=== PATIENT | female | born 1990 | race Caucasian/White ===

== ENCOUNTER 2022-07-27 13:51 | Outpatient (CLI) | payer OTHER, SELFPAY ==
[2022-07-27 17:37] LABS: Glucose* 95 mg/dL (60-115)
== END 2022-07-27 13:52 | disposition home or self-care (01) ==
LOC: NFLDREF 13:53
PROVIDERS: PCP Family Medicine; Visit Provider Obstetrics & Gynecology
DX: Z01.419 Encounter for gynecological examination (general) (routine) without abnormal findings (principal); Z13.1 Encounter for screening for diabetes mellitus; Z13.29 Encounter for screening for other suspected endocrine disorder
CPT/HCPCS: 82947; 84443

== ENCOUNTER 2023-06-21 22:38 | Emergency (ER) | payer OTHER, SELFPAY ==
[2023-06-21 22:53] VITALS: BP 145/93; PULSE 93; RESP 16; TEMP 37.1; O2SAT 97; BMI 29.6
--- NOTE | 2023-06-22 00:07 | ED_ITS ---
HPI - General Adult General Date Seen: 06/21/23 Chief complaint: Eye Problems Stated complaint: swollen eye Time Seen by Provider: 06/21/23 22:55 History of Present Illness HPI narrative: 32-year-old generally healthy female presents to the ER today with her for evaluation of concerns with pain and swelling involving her left eye. Symptoms again this morning with mild irritation and ?grayness, in her left eye. Her left eye sclera was a bit red this morning and her eye was itchy and bothersome throughout the day. It has been draining mostly clear fluid with a small amount of pus at the eyelid margins. This afternoon evening she is also developing some irritation in draining this involving her right eye. However this evening she had increasing symptoms in her left eye and developed worsening pain and swelling of her upper and lower lids. Vision is normal in both eyes. No known sick contacts although she has children who could have brought home viral illnesses. No fever. No headache. She is getting some pain in her left eyelids and around her left eye. With increasing swelling of her lids, she and her did an Internet search. They were concerned about possible evolving orbital cellulitis. No the other generalize headache. No pain with extraocular movements. She normally wears glasses. No known foreign bodies. No contacts. No trauma to her eye. No chemical exposure. At triage her visual acuity was 20/40 in the left (affected eye) and 20/50 on the right. Related Data Previous Rx's Medication Instructions Recorded drospirenone 3 mg-ethinyl 1 tab PO QDAY #84 tabs 09/07/22 estradiol 0.02 mg tablet Allergies Allergy/AdvReac Type Severity Reaction Status Date / Time latex Allergy Intermediate Unknown Verified 12/29/22 08:20 Sulfa (Sulfonamide Allergy Intermediate Hives Verified 12/29/22 08:20 Antibiotics) [facility] Medical History (Updated 06/22/23 @ 00:09 by Tremaine Hobson MD) History of delivery ?Z87.51 - Personal history of pre-term labor (ICD-10) History of migraine ?Z86.69 - Personal history of other diseases of the nervous system and sense organs (ICD-10) Vaginal delivery ?O80 - Encounter for full-term uncomplicated delivery (ICD-10) Proteinuria affecting ?O12.10 - Gestational proteinuria, unspecified trimester (ICD-10) Premenstrual dysphoric disorder ?F32.81 - Premenstrual dysphoric disorder (ICD-10) Surgical History (Updated 07/27/22 @ 13:36 by Lisa Mariano MD) History of hernia repair (~1999) ?Z98.890 - Other specified postprocedural states (ICD-10) ?Z87.19 - Personal history of other diseases of the digestive system (ICD-10) Status post bilateral inguinal hernia repair ?Z98.890 - Other specified postprocedural states (ICD-10) ?Z87.19 - Personal history of other diseases of the digestive system (ICD-10) History of third molar tooth extraction ?K08.409 - Partial loss of teeth, unspecified cause, unspecified class (ICD- 10) History of thoracic surgery ?Z98.890 - Other specified postprocedural states (ICD-10) Family History (Updated 07/27/22 @ 14:26 by Lisa Mariano MD) Father Depression Mother High blood pressure High cholesterol Thyroid disease Heart disease Grandmother Ovarian cancer Seizure disorder Uncle Thyroid disease Brother High blood pressure High cholesterol Other Family history of myotonic dystrophy Social History (Updated 07/27/22 @ 14:27 by Lisa Mariano MD) Narrative: [id number] mom, 2 children Highest level of school completed/degree received: Bachelor's degree Physical activity type details: Cardio, weights, [place], Pilates How many days of moderate to strenuous exercise, like a brisk walk, did you do in the last 7 days: 6 Smoking Status: Never smoker Do you use any of these nicotine containing products: None Second hand tobacco smoke exposure: No How often do you have a drink containing alcohol: never AUDIT-C Alcohol total score: 0 Non-prescribed substance use: denies use Are you now , , , , never or living with a partner: Social isolation score (0-1 are the most socially isolated patients): 1 Little interest or pleasure in doing things: not at all Feeling down, depressed, or hopeless: not at all Do you think of yourself as: straight/heterosexual Gender Identity: female Are you currently sexually active: Yes In the past 12 months, how many sex partners have you had: one Are you using contraception or practicing any form of control: Yes service: No Exam Narrative: Exam Narrative: Constitutional: Appears well-developed and well-nourished. Alert. Conversant. Non toxic. HENT: Head: Atraumatic. Nose: Nose normal. Mouth/Throat: Oral mucosa is clear and moist. no trismus. Pharynx normal. Tonsils symmetric. No tonsillar enlargement, erythema, or exudate. Eyes: Visual acuity (R): 20/50, (L): 20/40 PERRLA, swinging flashlight test normal, EOMI. No exophthalmos or enophthalmos. Normal extraocular movements without pain. She has mild injection of both the right and left bulbar conjunctiva. More erythema on the left than on the right. She has erythema and swelling of her left upper> left lower lids. Small amount of drainage in purulent material at the lid margin. No foreign body under the upper or lower lid. Neck: Normal range of motion. Neck supple. No tracheal deviation present. Cardiovascular: Normal rate, regular rhythm. No gallop. No friction rub. No murmur heard. Pulmonary/Chest: Effort normal. No stridor. No respiratory distress. No wheezes. No rales. No rhonchi . Musculoskeletal: RUE: Normal range of motion. No tenderness. No deformity LUE: Normal range of motion. No tenderness. No deformity RLE: Normal range of motion. No edema. No tenderness. No deformity LLE: Normal range of motion. No edema. No tenderness. No deformity Lymph: No cervical adenopathy. Neurological: Alert and oriented to person, place, and time. Normal strength. CN II-VII intact. No sensory deficit. GCS eye subscore is 4. GCS verbal subscore is 5. GCS motor subscore is 6. Normal coordination Skin: Skin is warm and dry. No rash noted. No pallor. Normal capillary refill. Psychiatric: Normal mood. Normal affect. Const: Vital Signs, click to edit/add: Vital Signs - 24 hr 06/21/23 22:53 Temperature 98.8 F Pulse Rate [Right Pulse Oximeter] 93 Respiratory Rate 16 Blood Pressure [Le ft Upper Arm] 145/93 H Pulse Oximetry 97 Oxygen Delivery Me thod Room Air Course Vital Signs Vital signs: Initial Vital Signs Temperature 98.8 F 06/21/23 22:53 Temperature Source Temporal Artery Scan 06/21/23 22:53 Pulse Rate 93 06/21/23 22:53 Pulse Rhythm Regular 06/21/23 22:53 Respiratory Rate 16 06/21/23 22:53 Blood Pressure 145/93 H 06/21/23 22:53 Blood Pressure Mean 110 H 06/21/23 22:53 Blood Pressure Position Sitting 06/21/23 22:53 Pulse Oximetry 97 06/21/23 22:53 Oxygen Delivery Method Room Air 06/21/23 22:53 Vital Signs Temperature 98.8 F 06/21/23 22:53 Pulse Rate 93 06/21/23 22:53 Respiratory Rate 16 06/21/23 22:53 Blood Pressure 145/93 H 06/21/23 22:53 Pulse Oximetry 97 06/21/23 22:53 Oxygen Delivery Method Room Air 06/21/23 22:53 Temperature 98.8 F 06/21/23 22:53 Pulse Rate 93 06/21/23 22:53 Respiratory Rate 16 06/21/23 22:53 Blood Pressure 145/93 H 06/21/23 22:53 Pulse Oximetry 97 06/21/23 22:53 Oxygen Delivery Method Room Air 06/21/23 22:53 Medications Administered Medications: Discontinued Medications Generic Name Dose Route Start Last Admin Trade Name Freq PRN Reason Stop Dose Admin Gentamicin Sulfate 1 drop 06/22/23 09:00 06/22/23 00:36 Gentamicin 0.3% Ophth EYE-BOTH Not Given TID [facility] Medical Decision Making [facility] Narrative Medical decision making narrative: This patient presents for evaluation of swollen, red, itchy, painful left eye and also mild itching and grayness of her right eye. A broad differential diagnosis was considered including orbital cellulitis, periorbital cellulitis, eye trauma,, local exposure, bacterial conjunctivitis, viral conjunctivitis, foreign body, corneal abrasion, chemical vs allergic conjunctivitis, corneal ulcer, HSV, herpes zoster opthalmicus, endopthalmitis, orbital cellulitis, etc. Signs and symptoms consistent with a possible early preseptal left cellulitis and conjunctivitis, possibly bacterial. Will start antibiotics (gentamicin drops, and Augmentin oral for possible preseptal cellulitis on the left) and have close follow-up in the ER or with her regular doctor. No red flag symptoms to suggest any of the above worrisome etiologies. Precautions for return to the ER reviewed. Questions answered. Discharge Plan Discharge Clinical Impression: Conjunctivitis, Periorbital cellulitis of left eye Patient Disposition: Home, Self-Care Condition: Stable Instructions: Periorbital Cellulitis (ED), Conjunctivitis (ED) Additional Instructions: As we discussed, use Tylenol higher or ibuprofen if needed for pain. You can tr y cool packs on here I had to help reduce the swelling and discomfort. Come back to the ER or see her physician immediately if you have any worsening symptoms such as increasing swelling, worsening pain in your on I, high fever, worsening vision, or if you have any other concerns. Prescriptions: No Action drospirenone-ethinyl estradiol 3-0.02 mg tablet 1 tab PO QDAY Qty: 84 3RF Follow Up/Referrals: Marry Stanley MD [Primary Care Provider] - Stand Alone Forms: [employer] Info Instructions
--- NOTE | 2023-06-22 00:37 | ED.NURSE ---
Gentamycin 0.3% opthal solution dispensed to patient for use at home per protocol. Dr. Hobson verbally states he wants the directions to say 1 drop in both eyes every four hours while awake for 5 days.
== END 2023-06-22 00:39 | disposition home or self-care (01) ==
PROVIDERS: Emergency Provider Emergency Medicine; PCP Family Medicine
DX: H10.022 Other mucopurulent conjunctivitis, left eye (principal); H05.012 Cellulitis of left orbit
CPT/HCPCS: 99283

== ENCOUNTER 2024-04-24 14:46 | Outpatient (CLI) | payer BC, SELFPAY | END 2024-04-24 14:47 | disposition home or self-care (01) | LOC: FRMREF 14:49 | PROVIDERS: PCP Family Medicine; Visit Provider Advanced Practice Midwife | DX: N93.9 Abnormal uterine and vaginal bleeding, unspecified (principal) | CPT/HCPCS: 84443 ==

== ENCOUNTER 2024-05-06 09:07 | Outpatient (CLI) | payer BC, SELFPAY ==
--- NOTE | 2024-05-06 09:15 | CRLHL7_ITS ---
For Patients: As a result of the Century Cures Act, medical imaging exams and procedure reports are released immediately into your electronic medical record. You may view this report before your referring provider. If you have questions, please contact your health care provider. INDICATION: Abnormal vaginal bleeding. COMPARISON: Transabdominal and transvaginal ultrasound of the female pelvis from 04/25/2019. FINDINGS: Transvaginal and transabdominal ultrasound examination of the female pelvis was performed. Initial examination is performed with transabdominal technique and transvaginal technique is used for better visualization of the pelvic structures. The uterus is anteverted with no evidence of mass. It measures 7.4 x 4.4 x 5.5 cm. The endometrial lining is normal in thickness at 6 mm. The ovaries are normal in appearance and size, the right measuring 3.7 x 1.3 x 2.0 cm and the left measuring 3.6 x 1.8 x 2.7 cm. There is normal color and pulse doppler flow in both ovaries. There is no sign of free fluid in the pelvis. There has been no interval change. IMPRESSION: Normal ultrasound examination of the female pelvis using transvaginal and transabdominal technique. Dictated by Jt Reyes MD @ 05/06/2024 12:10:38 PM (Electronically Signed)
== END 2024-05-06 09:08 | disposition home or self-care (01) ==
LOC: US 09:07
PROVIDERS: PCP Family Medicine; Visit Provider Advanced Practice Midwife
DX: N93.9 Abnormal uterine and vaginal bleeding, unspecified (principal)
CPT/HCPCS: 76830; 76856